=== PATIENT | female | born 1965 | race Caucasian/White ===

== ENCOUNTER 2018-08-24 15:20 | Inpatient (IN) | payer OTHER ==
[~2018-08-24] VITALS: Ht 162.6 cm; Wt 154.7 kg
--- NOTE | ~2018-08-24 | EKG ---
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 Surgeon: : 1965 Requested By: Hira Luke Order Number: [id number] MD: Sahil Pichardo Measurements Intervals [place] Rate: 94 P: 51 TX: 170 QRS: -17 QRSD: 93 T: 54 QT: 358 QTc: 448 Interpretive Statements Sinus rhythm Borderline left axis deviation Compared to ECG 11/01/2004 22:41:18 No significant changes Electronically Signed On 08-25-2018 8:50:48 [employer] by Sahil Pichardo [email or web address] <ELECTRONICALLY SIGNED> By: Sahil Pichardo MD, [facility] 08/25/18 0850 1532 31 Sahil Pichardo MD, FACC /EPI
[2018-08-24 15:21] VITALS: BP 146/80
[2018-08-24] MEDS ORDERED: ALBUTEROL2.5 MG/31 INH (15:37)
[2018-08-24] MEDS ORDERED: ADVAIR HFA 230M12 GM INH (15:37)
[2018-08-24 15:55] LABS: HEMATOCRIT 35.9 % (37.0-47.0); HEMOGLOBIN 11.5 gm/dL (12.0-15.0); MCH 25.3 pg (26.0-34.0); MCHC 32.1 g/dL (28.0-37.0); MCV 78.8 fL (80.0-100.0); RBC 4.56 mil/uL (4.20-5.00); RDW 16.9 % (10.5-14.5); WBC 7.2 thou/uL (4.0-11.0)
[2018-08-24 16:05] LABS: ANION GAP 4 mmol/L (7-16); BUN 7 mg/dL (7-18); CALCIUM 9.1 mg/dL (8.5-10.1); CHLORIDE 104 mmol/L (98-107); CO2 34 mmol/L (21-32); CREATININE 0.8 mg/dL (0.6-1.0); GLUCOSE 99 mg/dL (74-106); POTASSIUM 4.2 mmol/L (3.5-5.1); SODIUM 142 mmol/L (136-145)
[2018-08-24 16:13] LABS: TROPONIN-I <0.06 ng/mL (<0.06)
[2018-08-24 17:07] LABS: BE(vivo) 5.9 mmol/L (-2 to +3); HCO3 31.9 mmol/L (22.0-26.0); PCO2 52.9 mmHg (35.0-45.0); pH 7.398 (7.360-7.450); sO2 90.6 % (92.0-98.0)
[2018-08-24 18:48] VITALS: BP 146/80
[2018-08-24 19:29] VITALS: BP 136/83
[2018-08-24 19:40] VITALS: BP 126/103
[2018-08-24 23:49] VITALS: BP 151/77
[2018-08-25 04:10] VITALS: BP 140/85
[2018-08-25 04:20] LABS: CALCIUM 9.1 mg/dL (8.5-10.1); CREATININE 0.8 mg/dL (0.6-1.0); MAGNESIUM 2.2 mg/dL (1.8-2.4)
[2018-08-25 04:43] LABS: HEMATOCRIT 36.6 % (37.0-47.0); HEMOGLOBIN 11.7 gm/dL (12.0-15.0); MCH 25.4 pg (26.0-34.0); MCHC 32.1 g/dL (28.0-37.0); MCV 79.4 fL (80.0-100.0); RBC 4.61 mil/uL (4.20-5.00); RDW 16.9 % (10.5-14.5); WBC 9.2 thou/uL (4.0-11.0)
[2018-08-25 06:39] LABS: BE(vivo) 3.6 mmol/L (-2 to +3); HCO3 29.5 mmol/L (22.0-26.0); PCO2 50.5 mmHg (35.0-45.0); PO2 60.6 mmHg (80.0-100.0); pH 7.385 (7.360-7.450); sO2 90.6 % (92.0-98.0)
[2018-08-25 10:06] VITALS: BP 136/71
[2018-08-25 15:03] VITALS: BP 124/72
[2018-08-25 19:40] VITALS: BP 146/75
[2018-08-26 04:31] VITALS: BP 153/93
[2018-08-26 07:45] VITALS: BP 132/87
[2018-08-26 16:15] VITALS: BP 140/67
[2018-08-27 02:06] VITALS: BP 115/70
[2018-08-27 07:35] VITALS: BP 149/100
[2018-08-27] MEDS ORDERED: MUCINEX600 MG PO (10:45)
[2018-08-27] MEDS ORDERED: FLORANEX GRANU1 EACH PO (10:45)
[2018-08-27] MEDS ORDERED: PEPCID20 MG PO (10:45)
[2018-08-27] MEDS ORDERED: LEVAQUIN 500 M500 M1 PO (10:45)
[2018-08-27] MEDS ORDERED: PREDNISONE 20 M20 M1 PO (10:45)
[2018-08-27 13:27] VITALS: BP 128/73
[2018-08-27 15:35] VITALS: BP 128/73
== END 2018-08-27 18:50 | disposition home health service (06) | DRG 871 ==
LOC: ER 15:20 → EROBS 17:06 → 4W 17:06 → 2N 18:17 → EROBS 18:23 → 4W 19:41 → SICU 08-26 21:16 → ENTRNSPT 08-27 18:44 → SICU 08-27 18:50
PROVIDERS: Emergency Medicine; Internal Medicine
DX: A41.9 Sepsis, unspecified organism (principal); J96.21 Acute and chronic respiratory failure with hypoxia; J96.22 Acute and chronic respiratory failure with hypercapnia; J44.1 Chronic obstructive pulmonary disease with (acute) exacerbation; Z68.43 Body mass index [BMI] 50.0-59.9, adult; E66.2 Morbid (severe) obesity with alveolar hypoventilation; D63.8 Anemia in other chronic diseases classified elsewhere; E11.9 Type 2 diabetes mellitus without complications; I10 Essential (primary) hypertension; Z87.891 Personal history of nicotine dependence; Z79.51 Long term (current) use of inhaled steroids; Z79.899 Other long term (current) drug therapy; Z88.8 Allergy status to other drugs, medicaments and biological substances; Z83.3 Family history of diabetes mellitus; Z82.5 Family history of asthma and other chronic lower respiratory diseases; Z82.49 Family history of ischemic heart disease and other diseases of the circulatory system; Z23 Encounter for immunization
CPT/HCPCS: 10045; 15002

== ENCOUNTER 2018-12-21 19:19 | Emergency (ER) | payer OTHER ==
[~2018-12-21] VITALS: Ht 160 cm; Wt 149.7 kg
[~2018-12-21 19:19] MED LIST: ADVAIR HFA 230M12 GM INH; ALBUTEROL2.5 MG/31 INH; FLORANEX GRANU1 EACH PO; LEVAQUIN 500 M500 M1 PO; MUCINEX600 MG PO; PEPCID20 MG PO; PREDNISONE 20 M20 M1 PO
[2018-12-21 19:45] LABS: HEMATOCRIT 38.5 % (37.0-47.0); HEMOGLOBIN 12.4 gm/dL (12.0-15.0); MCH 24.7 pg (26.0-34.0); MCHC 32.1 g/dL (28.0-37.0); RDW 18.5 % (10.5-14.5); WBC 9.2 thou/uL (4.0-11.0)
[2018-12-21 19:52] LABS: CALCIUM 8.9 mg/dL (8.5-10.1); CREATININE 0.8 mg/dL (0.6-1.0); POTASSIUM 3.6 mmol/L (3.5-5.1)
[2018-12-21] MEDS ORDERED: SPIRIVA INH (19:59)
[2018-12-21 21:40] VITALS: BP 135/84
--- NOTE | 2018-12-22 08:26 | EKG ---
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 : 1965 Requested By: Carole Manzo Order Number: [id number] MD: Chalino Arauz Measurements Intervals [place] Rate: 204 P: 48 OR: 179 QRS: -7 QRSD: 104 T: 44 QT: 264 QTc: 487 Interpretive Statements Supraventricular tachycardia ST depression, probably rate related Baseline wander in lead(s) V1 Compared to ECG 08/24/2018 15:32:06 ST (T wave) deviation now present Sinus rhythm no longer present Electronically Signed On 12-22-2018 8:26:15 CDT by Chalino Arauz [email or web address] ��������������������������������������������� <ELECTRONICALLY SIGNED> ���������������������������������������� By: Chalino Arauz MD ��������������������������������������������� 12/22/18 0826 30 30 Chalino Arauz MD /EPI
--- NOTE | 2018-12-22 08:26 | EKG ---
[place] [address] [facility] [place] [address] ELECTROCARDIOGRAM REPORT Name: JOSESITO FIGUEROA [facility] #: [facility] [id number] ������������������ Admission: 12/21/18 ������������������ Attend Phys: Discharge: ������������������ Date of : 61 Report #: [id number] ����������������������������������������������������������������� [id number] THIS REPORT FOR: //name// 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 : 1965 Requested By: Carole Manzo Order Number: [id number] MD: Chalino Arauz Measurements Intervals [place] Rate: 101 P: 63 NV: 191 QRS: -18 QRSD: 89 T: 46 QT: 343 QTc: 445 Interpretive Statements Sinus tachycardia Inferior infarct, old Baseline wander in lead(s) III,aVL Compared to ECG 08/24/2018 15:32:06 Myocardial infarct finding now present Sinus rhythm no longer present Electronically Signed On 12-22-2018 8:26:34 CDT by Chalino Arauz [email or web address] ��������������������������������������������� <ELECTRONICALLY SIGNED> ���������������������������������������� By: Chalino Arauz MD ��������������������������������������������� 12/22/18825 35 35 Chalino Arauz MD /EPI
== END 2018-12-21 19:45 | disposition home or self-care (01) ==
LOC: ER 19:19
PROVIDERS: Emergency Medicine
DX: I47.1 Supraventricular tachycardia (principal); J44.9 Chronic obstructive pulmonary disease, unspecified; Z88.1 Allergy status to other antibiotic agents; Z88.8 Allergy status to other drugs, medicaments and biological substances

== ENCOUNTER → 2019-01-20 | Outpatient (CLI) | payer OTHER ==
[~2019-01-20] MED LIST changes: +CARDIZEM CD120 MG PO; +NAPROSYN500 MG PO; +SPIRIVA INH; +VENTOLIN HFA 1818 GM INH
--- NOTE | 2019-01-20 15:21 | 2DMMODE ---
[facility] [place] [address] 2 D/M-MODE ECHOCARDIOGRAM Name: JOSESITO FIGUEROA Room #: REG [facility]#: [id number] ������������� Admission: 01/20/19 ������������� Attend Phys: Chalino Arauz Discharge: ��� ������������� ��� Date of : 61 Date of Service: 01/20/19 1521 �� Report #: [id number] �������� ��������������������������������������������[id number] THIS REPORT FOR: //name// APPROVED REPORT Study performed: 01/20/2019 14:16:41 EXAM: Comprehensive 2D, Doppler, and color-flow Echocardiogram Patient Location: Out-Patient Status: routine BSA: 2.40 HR: 85 bpm BP: 127/86 mmHg Rhythm: NSR Other Information Study Quality: Fair Technically limited study due to morbid obesity, COPD and unable to position. Indications SVT, COPD. 2D Dimensions RVDd: 33.01 mm IVSd: 11.87 (7-11mm) LVOT Diam: 22.54 (18-24mm) LVDd: 48.96 mm PWd: 12.07 (7-11mm) LVDs: 29.21 (25-40mm) Aortic Root: 37.86 mm Volumes Left Atrial Volume (Systole) Single Plane 4CH: 43.03 mL Single Plane 2CH: 55.89 mL LA ESV Index: 22.00 mL/m2 Aortic Valve AoV Peak Andrea.: 1.58 m/s AO Peak Gr.: 9.95 mmHg LVOT Max P.71 mmHg LVOT Max V: 1.08 m/s ADAMARIS Vmax: 2.74 cm2 Mitral Valve E/A Ratio: 0.7 [facility] [place] [address] 2 D/M-MODE ECHOCARDIOGRAM Name: JOSESITO FIGUEROA Room #: REG [facility]#: [id number] ������������� Admission: 01/20/19 ������������� Attend Phys: Chalino Arauz Discharge: ��� ������������� ��� Date of : 61 Date of Service: 01/20/19 1521 �� Report #: [id number] �������� ��������������������������������������������[id number] MV Decel. Time: 142.25 ms MV E Max Andrea.: 0.76 m/s MV A Andrea.: 1.06 m/s MV PHT: 41.25 ms IVRT: 64.59 ms Pulmonary Valve PV Peak Andrea.: 1.50 m/s PV Peak Gr.: 9.01 mmHg Tricuspid Valve RAP Estimate: 5.00 mmHg Left Ventricle The left ventricle is normal size. Mild concentric left ventricular hypertrophy. Left ventricular systolic function is normal. LVEF is 60%. Mild diastolic dysfunction is present (impaired relaxation pattern). Right Ventricle The right ventricle is normal size. The right ventricular systolic function is normal. Atria The left atrium size is normal. The right atrium size is normal. Aortic Valve The aortic valve is normal in structure. No aortic regurgitation is present. There is no aortic valvular stenosis. Mitral Valve The mitral valve is normal in structure. There is no mitral valve regurgitation noted. No evidence of mitral valve stenosis. Tricuspid Valve The tricuspid valve is normal in structure. There is no tricuspid valve regurgitation noted. Unable to assess PA pressure. Pulmonic Valve Pulmonic valve is not well visualized. Great Vessels The aortic root is normal in size. Ascending aorta is not well visualized. IVC is normal in size and collapses >50% with inspiration. [facility] [place] [address] 2 D/M-MODE ECHOCARDIOGRAM Name: JOSESITO FIGUEROA [facility] #[facility] [id number] ������������� Admission: 01/20/19 ������������� Attend Phys: Chalino Arauz Discharge: ��� ������������� ��� Date of : 61 Date of Service: 01/20/19 1521 �� Report #: [id number] �������� ��������������������������������������������[id number] Pericardium There is no pericardial effusion. <Conclusion> The left ventricle is normal size. LVEF is 60%. The aortic valve is normal in structure. The mitral valve is normal in structure. The tricuspid valve is normal in structure. There is no tricuspid valve regurgitation noted. Unable to assess PA pressure. Pulmonic valve is not well visualized. There is no pericardial effusion. ��������������������������������������������� <ELECTRONICALLY SIGNED> ���������������������������������������� By: Hitesh Armstrong MD ��������������������������������������������� 01/20/19 1521 152 1521 Hitesh Armstrong MD /INF
== END ==
LOC: CV 01-06 06:21
DX: I51.7 Cardiomegaly (principal); I47.1 Supraventricular tachycardia; J44.9 Chronic obstructive pulmonary disease, unspecified

== ENCOUNTER 2019-01-22 06:38 | Observation (INO) | payer OTHER ==
[~2019-01-22] VITALS: Ht 157.5 cm; Wt 157.4 kg
--- NOTE | ~2019-01-22 | P ---
[facility] [place] [address] PROCEDURE REPORT Name: JOSESITO FIGUEROA Room #: 218-P [facility] M.R.#: [id number] Admission: 01/22/19 ������������������ Attend Phys: Chalino Arauz MD Discharge: 01/23/19 ������������������ Date of : 61 Report #: [id number] THIS REPORT FOR: //name// CC: Chalino Barr PREOPERATIVE DIAGNOSIS: Supraventricular tachycardia. 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 PROCEDURES PERFORMED: 1. SVT ablation, CPT code 14188. 2. 3D mapping, CPT code 40846. 3. EP with left atrial pacing and recording CPT code 34438. 4. Program stimulation pacing after IV drug infusion. HISTORY: The patient is a 53-year-old recently presented to the Emergency Room with the SVT that is consistent with AV jennifer reentrant tachycardia that terminated with IV adenosine. She is here for EP study and ablation. ANESTHESIA: The patient underwent MAC anesthesia with no anesthesia related complications. DESCRIPTION OF PROCEDURE: The patient underwent informed consent. We discussed the details of the procedure including the risks, which are not limited to bleeding, vascular damage, cardiac perforation as well as stroke or PA. She understood these risks and is willing to proceed. The patient was brought EP laboratory in a fasting and sedated state, prepped and draped in a sterile fashion. Obtained access to the bilateral femoral veins, placing 8 and 6-Swazi short sheath in the right femoral vein and 7 and 6-Swazi short sheath in the left femoral vein using the modified Seldinger technique. Next, under fluoroscopy, 3 quadripolar catheters were placed at the HRA, His and RV positions and decapolar catheter was placed in the coronary sinus. Next, a basic EP study was performed. At baseline, the patient was in sinus rhythm with sinus cycle length of 650 milliseconds, VT interval 175 milliseconds, QRS duration 85 milliseconds, QT interval 380 milliseconds, AH interval 115 milliseconds and HV interval 41 milliseconds. Next, atrial pacing was performed from the right and left atrium. AV block was noted to be less than 350 milliseconds. There was evidence of a long AH interval with atrial burst pacing consistent with the conduction down the slow pathway. Next, atrial extrastimuli were delivered, and atrial ERP was noted at 240 milliseconds at a [address] cycle length[address] Double atrial extrastimuli were also delivered and no SVT was induced. Ventricular burst pacing was performed and VA block was noted to be less than 550 milliseconds. Next, isoproterenol infusion was initiated at 1 mcg per minute [facility] [address] [place] [address] PROCEDURE REPORT Name: JOSESITO FIGUEROA Room #: 218-P [facility] M.RNarendra#: [id number] Admission: 01/22/19 ������������������ Attend Phys: Chalino Arauz MD Discharge: 01/23/19 ������������������ Date of : 61 Report #: [id number] and AV block was noted at 250 milliseconds. VA block was noted at 390 milliseconds. Atrial ERP was noted at 220 milliseconds at a [address] cycle length. Isoproterenol infusion was increased to 2 mcg per minute and AV block was noted at 240 milliseconds. There was occasional single AV jennifer echoes, but I could not induce any SVT. Based on her 12-lead EKG from the Emergency Room that was consistent with AV jennifer reentrant tachycardia and the fact that this terminated with IV adenosine as well as the fact that she had evidence of a slow pathway and occasional single AV jennifer echoes, I decided to perform a slow pathway modification. 3D MAPPING AND ABLATION: A detailed 3D geometry of the right atrium with specific emphasis of the His region, slow pathway region and coronary sinus ostium was created. Ablation was performed at 50 bright and 55 degrees via an SR0 sheath with a 4 mm [employer] Ferrara ablation catheter. On my fifth, sixth and seventh lesions, I had very good slow junctionals. During my seventh lesion, there was a steam pop which resulted in transient AV block for about 5-10 seconds and this resolved. Post-ablation, a basic EP study was performed. AV block was noted at 440 milliseconds. There was no further evidence of the slow pathway. AV jennifer ERP was noted at 410 milliseconds at a [address] cycle length. Isoproterenol infusion was initiated at 2 mcg per minute and AV block was noted at 360 milliseconds. AV jennifer ERP was noted at 300 milliseconds at a [address] cycle length. VA block was noted to be greater than 450 milliseconds. Aggressive atrial and ventricular pacing maneuvers were performed. I could not induce SVT. Post-ablation, the patient was in sinus rhythm with a sinus cycle length of 560 milliseconds, VT interval 190 milliseconds, QRS duration 88 milliseconds, QT interval 330 milliseconds, AH interval 115 milliseconds, and HV interval 41 milliseconds. As such, all catheters and sheaths were pulled. Hemostasis was obtained and the patient awoke neurologically and hemodynamically intact with no complications. A limited echo was performed. Post-ablation, there was no evidence of effusion. CONCLUSIONS: 1. Successful ablation with modification of the slow pathway. 2. Normal SA jennifer function. 3. Normal AV jennifer function. 4. Normal His-Purkinje function. 5. No inducible arrhythmias on or off isoproterenol post-ablation. ��������������������������������������������� ���������������������������������������� By: ��������������������������������������������� 1236 1648 Chalino Arauz MD /nt
[~2019-01-22 06:38] MED LIST changes: -CARDIZEM CD120 MG PO; -NAPROSYN500 MG PO; -VENTOLIN HFA 1818 GM INH
[2019-01-22 09:00] LABS: ABSOLUTE NEUTROPHILS 4.5 thou/uL (1.4-8.2); BASOPHILS 0.7 % (0.0-2.0); EOSINOPHILS 5.4 % (0.0-3.0); HEMATOCRIT 32.9 % (37.0-47.0); HEMOGLOBIN 10.5 gm/dL (12.0-15.0); MCH 24.4 pg (26.0-34.0); MCHC 31.8 g/dL (28.0-37.0); MCV 76.8 fL (80.0-100.0); MONOCYTES 9.7 % (1.0-8.0); PLATELET COUNT 347 thou/uL (150-400); POLYS 66.2 % (36.0-66.0); RBC 4.28 mil/uL (4.20-5.00); RDW 17.5 % (10.5-14.5); WBC 6.8 thou/uL (4.0-11.0)
[2019-01-22 09:10] LABS: ALBUMIN 3.4 g/dL (3.4-5.0); ANION GAP < 0 mmol/L (7-16); BUN 18 mg/dL (7-18); CALCIUM 9.1 mg/dL (8.5-10.1); CHLORIDE 103 mmol/L (98-107); CO2 32 mmol/L (21-32); CREATININE 0.6 mg/dL (0.6-1.0); GLUCOSE 108 mg/dL (74-106); POTASSIUM 3.7 mmol/L (3.5-5.1); SGOT 21 U/L (15-37); SGPT 20 U/L (30-65); SODIUM 132 mmol/L (136-145); TOTAL BILIRUBIN 0.3 mg/dL (<0.1-1.0); TOTAL PROTEIN 7.4 g/dL (6.4-8.2)
[2019-01-22 09:13] LABS: APTT 28.8 Seconds (24.5-32.8); PROTIME 10.4 Seconds (9.3-11.4)
[2019-01-22] MEDS ORDERED: VENTOLIN HFA 1818 GM INH (10:07)
[2019-01-22] MEDS ORDERED: NAPROSYN500 MG PO (10:08)
[2019-01-22] MEDS ORDERED: CARDIZEM CD120 MG PO (10:09)
--- NOTE | 2019-01-22 15:36 | 2DMMODE ---
[address] [address] 2 D/M-MODE ECHOCARDIOGRAM Name: JOSESITO FIGUEROA Room #: REG [facility]#: [id number] ������������� Admission: 01/22/19 ������������� Attend Phys: Chalino Arauz Discharge: ��� ������������� ��� Date of : 61 Date of Service: 01/22/19 1536 �� Report #: [id number] �������� ��������������������������������������������[id number] THIS REPORT FOR: //name// APPROVED REPORT Study performed: 01/22/2019 15:03:35 EXAM: Limited 2D Echocardiogram Patient Location: Post Op Status: stat BSA: 2.40 HR: 97 bpm Other Information Study Quality: Adequate Technically limited study due to no mobility, morbid obesity. Indications STAT echo to rule out pericardial effusion. Status post SVT ablation. Left Ventricle Left ventricular systolic function is normal. LVEF is 55%. Right Ventricle The right ventricle is normal size. The right ventricular systolic function is normal. Atria The left atrium size is normal. The right atrium size is normal. Pericardium There is no pericardial effusion. <Conclusion> Very limited study Left ventricular systolic function is normal. [address] [address] 2 D/M-MODE ECHOCARDIOGRAM Name: JOSESITO FIGUEROA Room #: REG [facility]#: [id number] ������������� Admission: 01/22/19 ������������� Attend Phys: Chalino Arauz Discharge: ��� ������������� ��� Date of : 61 Date of Service: 01/22/191535 �� Report #: [id number] �������� ��������������������������������������������[id number] LVEF is 55%. There is no pericardial effusion. ��������������������������������������������� <ELECTRONICALLY SIGNED> ���������������������������������������� By: Sahil Pichardo MD, FACC ��������������������������������������������� 01/22/191535 35 35 Sahil Pichardo MD, FACC /INF
[2019-01-22 16:11] VITALS: BP 126/78
--- NOTE | 2019-01-22 17:09 | EKG ---
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 : 1965 Requested By: Chalino Arauz Order Number: [id number] MD: Chalino Arauz Measurements Intervals [place] Rate: 95 P: 55 NE: 206 QRS: -13 QRSD: 91 T: 32 QT: 355 QTc: 447 Interpretive Statements Sinus rhythm Prolonged NE interval Compared to ECG 12/21/2018 19:36:41 Electronically Signed On 01-22-2019 17:08:46 CDT by Chalino Arauz [email or web address] ��������������������������������������������� <ELECTRONICALLY SIGNED> ���������������������������������������� By: Chalino Arauz MD ��������������������������������������������� 01/22/19 1708 145 145 Chalino Arauz MD /ONUR
[2019-01-22 20:35] VITALS: BP 132/73
[2019-01-23] VITALS: BP 126/78
[2019-01-23 04:45] VITALS: BP 132/60
[2019-01-23 10:36] VITALS: BP 132/60
== END 2019-01-23 11:12 | disposition home or self-care (01) ==
LOC: CATH 06:38 → 2N 16:11 → ENTRNSPT 01-23 10:51 → EDTRNSPTSTS 01-23 10:56 → 2N 01-23 11:12
PROVIDERS: ADMIT Internal Medicine Cardiovascular Disease
DX: I47.1 Supraventricular tachycardia (principal); J96.11 Chronic respiratory failure with hypoxia; J44.1 Chronic obstructive pulmonary disease with (acute) exacerbation; E66.01 Morbid (severe) obesity due to excess calories; Z79.899 Other long term (current) drug therapy
CPT/HCPCS: 62110; 62900; 70005

== ENCOUNTER → 2020-11-02 | Outpatient (CLI) | payer OTHER ==
[~2020-11-02] MED LIST changes: +CARDIZEM CD120 MG PO; +FUROSEMIDE 40 M40 MG PO; +NAPROSYN500 MG PO; +VENTOLIN HFA 1818 GM INH
== END ==
LOC: SJCVCIMAG 10-26 07:35
PROVIDERS: ATTEND Internal Medicine Cardiovascular Disease
DX: Z01.810 Encounter for preprocedural cardiovascular examination (principal); R06.00 Dyspnea, unspecified; I47.1 Supraventricular tachycardia; J44.9 Chronic obstructive pulmonary disease, unspecified; E66.9 Obesity, unspecified; Z87.891 Personal history of nicotine dependence

== ENCOUNTER → 2020-11-04 | Outpatient (CLI) | payer OTHER ==
[~2020-11-04] MED LIST changes: -FUROSEMIDE 40 M40 MG PO
== END ==
LOC: SJCVC 10:54
PROVIDERS: ATTEND Internal Medicine Cardiovascular Disease
DX: Z01.810 Encounter for preprocedural cardiovascular examination (principal); R94.31 Abnormal electrocardiogram [ECG] [EKG]; R07.9 Chest pain, unspecified; R06.00 Dyspnea, unspecified; R94.39 Abnormal result of other cardiovascular function study; I47.1 Supraventricular tachycardia; I61.9 Nontraumatic intracerebral hemorrhage, unspecified; E66.01 Morbid (severe) obesity due to excess calories; J44.9 Chronic obstructive pulmonary disease, unspecified; K21.9 Gastro-esophageal reflux disease without esophagitis; G47.33 Obstructive sleep apnea (adult) (pediatric); G40.909 Epilepsy, unspecified, not intractable, without status epilepticus; F41.9 Anxiety disorder, unspecified; Z86.73 Personal history of transient ischemic attack (TIA), and cerebral infarction without residual deficits; Z87.891 Personal history of nicotine dependence; Z72.89 Other problems related to lifestyle; Z88.6 Allergy status to analgesic agent; Z88.1 Allergy status to other antibiotic agents; Z88.8 Allergy status to other drugs, medicaments and biological substances; Z79.899 Other long term (current) drug therapy

== ENCOUNTER → 2020-11-10 | Outpatient (CLI) | payer OTHER ==
[~2020-11-10] VITALS: Ht 160 cm; Wt 162.2 kg
[~2020-11-10] MED LIST changes: +FUROSEMIDE 40 M40 MG PO
[2020-11-10 09:58] VITALS: BP 137/76
--- NOTE | 2020-11-10 13:05 | CATHLAB ---
[facility] [place] [address] [address] INVASIVE PROCEDURE REPORT Name: JOSESITO FIGUEROA Room #: REG [facility]#: [id number] Admission: 11/10/20 Attend Phys: Reza Millan MD Discharge: Date of : 61 Report #: [id number] THIS REPORT FOR: cc: Antonio Barr MD, Sequita MD Park,Reza Pruett MD ~ APPROVED REPORT Study performed: 11/10/2020 10:44:23 Patient Details Patient Status: Out-Patient Room #: The patient is a 55 year-old female Event Personnel Reza Millan Thread Twister, Patt Moss RN RN, Betsey Ferguson [place], Nancy RTR, CABINET BUILDER Monitor, Gail De Guzman RTR Monitor Procedures Performed Art Access - R radial artery Left Heart Cath w/or w/o Coronaries [id number] [facility] Hemostasis with Hemoband Indication Dyspnea, Positive stress test, Chest pain Risk Factors Obesity, Cerebrovascular Disease, Chronic Lung DiseaseHypercholesterolemiaPhysical Activity, Hypertension Previous Procedures/Diagnoses Previous CVA Procedure Narrative The Right Wrist^ was infiltrated with 1% Lidocaine subcutaneous anesthesia. The right wrist accessed via ultrasound guidance. A TRANSRADIAL SLENDER 6F CoPatientTH KIT #[id number] sheath was inserted into the Right Radial Artery^. Coronary angiography was performed using coronary diagnostic catheters. The right coronary system was accessed and visualized with a JR4 catheter. The left coronary system was accessed and visualized with a JL3.5 catheter. The left ventricle was accessed and visualized with a JR4 catheter. The patient tolerated the procedure well and there were no complications associated with the procedure. There was no hematoma. An extra long [facility] [address] [place] [address] INVASIVE PROCEDURE REPORT Name: JOSESITO FIGUEROA Room #: REG [facility]#: [id number] Admission: 11/10/20 Attend Phys: Reza Millan MD Discharge: Date of : 61 Report #: [id number] vascular band was used for hemostasis Intraoperative Conscious Sedation Fentanyl 50 mcg No versed was used for sedation. Fluoro Time: 3.30 minutes Dose: DAP 7173.00 cGycm2 1111 mGy Contrast Type and Amount: Omnipaque 55 ml Coronary Angiography The patient's coronary anatomy is co- dominant. Diagnostic Cath Left Main The left main artery is patent, with no flow-limiting lesions. LAD The LAD is a moderate-sized caliber vessel, traverses the anterior wall and wraps around the apex. This vessel appears angiographically normal. Diagonal 1 This is a small caliber vessel, originating from the mid segment of the LAD. This vessel appears angiographically normal. Diagonal 2 This is a small caliber vessel, appears angiographically normal. Circumflex The left circumflex artery is a codominant vessel, patent with no flow-limiting lesions. OM1 This is a moderate-sized caliber vessel, originating from the proximal left circumflex segment. This vessel divides into 2 branches at its midpoint. This vessel appears angiographically normal. OM2 This is a moderate-sized caliber vessel, patent with no flow-limiting lesions. OM3 This is a moderate-sized caliber vessel, patent with no flow-limiting lesions. Right Coronary The RCA is a moderate-sized caliber vessel, appears angiographically normal. R PDA This is a moderate-sized caliber vessel, patent with no flow-limiting lesions. Left Ventriculography Left Ventriculography was not performed. Ejection Fraction was 50% based off patient's Nuclear Cardiac Stress Test. An LVEDP was measured and there is no gradient across the outflow tract. Hemodynamics [facility] [address] [place] [address] INVASIVE PROCEDURE REPORT Name: JOSESITO FIGUEROA Room #: REG [facility]#: [id number] Admission: 11/10/20 Attend Phys: Reza Millan MD Discharge: Date of : 61 Report #: [id number] The aortic pressure is 122/83 mmHg with a mean of 102 mmHg. The left ventricular pressure is 112/5 mmHg with a mean of mmHg. The left ventricular end diastolic pressure is 8 mmHg. Conclusion 1. Angiographically normal coronary arteries. 2. Codominant system. 3. Normal RV systolic function. 4. Recommend risk factor management. <ELECTRONICALLY SIGNED> By: Reza Millan MD 11/10/20 1305 1305 1305 Reza Millan MD /INF
== END | disposition home or self-care (01) ==
LOC: CATH 08:03
PROVIDERS: ATTEND Internal Medicine Cardiovascular Disease
DX: R07.9 Chest pain, unspecified (principal); R94.39 Abnormal result of other cardiovascular function study; R06.00 Dyspnea, unspecified; I10 Essential (primary) hypertension; E78.00 Pure hypercholesterolemia, unspecified; J44.9 Chronic obstructive pulmonary disease, unspecified; I67.9 Cerebrovascular disease, unspecified; E66.9 Obesity, unspecified; E66.01 Morbid (severe) obesity due to excess calories; K21.9 Gastro-esophageal reflux disease without esophagitis; F41.9 Anxiety disorder, unspecified; Z98.890 Other specified postprocedural states; Z79.899 Other long term (current) drug therapy; Z88.8 Allergy status to other drugs, medicaments and biological substances

== ENCOUNTER → 2021-03-22 | Outpatient (CLI) | payer OTHER | LOC: CAT 11:03 | PROVIDERS: ATTEND Internal Medicine | DX: Z12.2 Encounter for screening for malignant neoplasm of respiratory organs (principal); J98.11 Atelectasis; I70.0 Atherosclerosis of aorta; M47.815 Spondylosis without myelopathy or radiculopathy, thoracolumbar region; K80.20 Calculus of gallbladder without cholecystitis without obstruction; R91.8 Other nonspecific abnormal finding of lung field; Z87.891 Personal history of nicotine dependence ==